=== PATIENT | female | born 1990 | race Hispanic/Latino ===

== ENCOUNTER 2018-01-18 03:56 | Emergency (ER) | payer SELFPAY ==
[2018-01-18 04:39] VITALS: BMI 25.8
[2018-01-18 05:15] LABS: BLOOD UREA NITROGEN 12 mg/dl (7-17); CALCIUM 9.6 mg/dL (8.4-10.2); GFR NON-AFRICAN AMERICAN > 60
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
[2018-01-18 06:03] LABS: BASO % 0.3 % (0.0-2.0); EOS # 0.1 K/uL (0.0-0.7); EOS % 1.2 % (0.0-4.0); HEMOGLOBIN 14.2 g/dL (12.0-16.0); LYMPH # 2.7 K/uL (1.0-4.3); LYMPH % 28.2 % (20.0-40.0); MEAN CELL VOLUME 90.1 fl (81.0-99.0); MEAN CORPUSCULAR HEMOGLOBIN 31.2 pg (27.0-31.0); MEAN CORPUSCULAR HGB CONC 34.6 g/dL (33.0-37.0); MEAN PLATELET VOLUME 10.4 fl (7.2-11.7); MONO # 0.5 K/uL (0.0-0.8); MONO % 5.5 % (0.0-10.0); NEUT # 6.2 K/uL (1.8-7.0); NEUT % 64.8 % (50.0-75.0); RBC 4.54 Mil/uL (3.80-5.20); WHITE BLOOD COUNT 9.5 K/uL (4.8-10.8)
[2018-01-18 06:09] LABS: INR 1.1 (0.9-1.2); PARTIAL THROMBOPLASTIN TIME 27.9 Seconds (25.6-37.1); PROTHROMBIN TIME 11.8 Seconds (9.8-13.1)
[2018-01-18 08:22] VITALS: RESP 19
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
--- NOTE | 2018-01-18 09:28 | ED PDOC ---
- Laboratory Results Result Diagrams: 01/18/18 04:25 01/18/18 04:25 - ECG O2 Sat by Pulse Oximetry: 98 Disposition - Clinical Impression Clinical Impression: Cellulitis - POA Present On Arrival: None - Disposition Referrals: [facility] [Outside] Disposition: Routine/Home Disposition Time: 09:27 Condition: FAIR Prescriptions: Naproxen [Naprosyn] 500 mg PO Q12H #20 tab Sulfamethoxazole/Trimethoprim [Bactrim DS 800 mg-160 mg] 1 tab PO BID #20 tab Instructions: Cellulitis and Erysipelas (Skin Infections) Forms: [facility] (Bel[place]ian)
[2018-01-18 09:42] VITALS: BP 126/78; PULSE 78; TEMP 98
--- NOTE | 2018-01-18 11:40 | US ---
Date of service: 01/18/2018 PROCEDURE: Right lower extremity venous duplex Doppler. HISTORY: lower extremity swelling COMPARISON: None available. TECHNIQUE: Common femoral, superficial femoral, popliteal and posterior tibial veins were evaluated. Flow was assessed with color Doppler, compressibility, assessment of phasic flow and augmentation response. FINDINGS: COMMON FEMORAL VEIN: Unremarkable. SUPERFICIAL FEMORAL VEIN: Unremarkable. POPLITEAL VEIN: Unremarkable. POSTERIOR TIBIAL VEIN: Unremarkable. OTHER FINDINGS: None. IMPRESSION: No evidence of deep venous thrombosis in the right lower extremity.
[2018-01-19 05:05] VITALS: O2SAT 99
== END 2018-01-18 09:47 | disposition home or self-care (01) ==
LOC: H.ER 03:56
DX: L03.115 Cellulitis of right lower limb (principal)
CPT/HCPCS: 73590; 80048; 82550; 83605; 85025; 85610; 85730; 93971; 96374; 99284; J1885